=== PATIENT | female | born 1945 | race Caucasian/White ===

== ENCOUNTER 2021-03-24 18:00 | Inpatient (IN) | payer MEDICARE, OTHER ==
[~2021-03-24] VITALS: Ht 154.9 cm; Wt 42.2 kg
[2021-03-29 13:35] VITALS: BP 117/72
== END 2021-03-29 16:39 | disposition home or self-care (01) | DRG 189 ==
LOC: ED 18:05 → EDIP 22:41 → 5SO 03-25 14:22
PROVIDERS: ADMIT Internal Medicine; ATTEND Hospitalist
DX: J96.21 Acute and chronic respiratory failure with hypoxia (principal); I21.A1 Myocardial infarction type 2; E43 Unspecified severe protein-calorie malnutrition; I50.22 Chronic systolic (congestive) heart failure; Z68.1 Body mass index [BMI] 19.9 or less, adult; I42.8 Other cardiomyopathies; F17.200 Nicotine dependence, unspecified, uncomplicated; I44.7 Left bundle-branch block, unspecified; I71.4 Abdominal aortic aneurysm, without rupture; I73.9 Peripheral vascular disease, unspecified; I11.0 Hypertensive heart disease with heart failure; R54 Age-related physical debility; R00.0 Tachycardia, unspecified; Z63.8 Other specified problems related to primary support group; Z95.820 Peripheral vascular angioplasty status with implants and grafts; Z99.81 Dependence on supplemental oxygen; J44.9 Chronic obstructive pulmonary disease, unspecified